=== PATIENT | male | born 1960 | race African-American/Black ===

== ENCOUNTER 2019-08-07 18:55 | Emergency (ER) | payer MEDICAID ==
[~2019-08-07] VITALS: Ht 188 cm; Wt 121.0 kg
[2019-08-07 19:02] VITALS: BP 158/95
[2019-08-07] MEDS ORDERED: BACITRACIN ZINC OINT UDPKT TOP ONE ×2 (20:00→21:00)
== END 2019-08-07 21:29 | disposition home or self-care (01) ==
LOC: ER 18:55
DX: S91.111D Laceration without foreign body of right great toe without damage to nail, subsequent encounter (principal); X58.XXXD Exposure to other specified factors, subsequent encounter; E11.9 Type 2 diabetes mellitus without complications; I10 Essential (primary) hypertension; Z88.0 Allergy status to penicillin
CPT/HCPCS: 82962; 99283

== ENCOUNTER 2021-10-14 21:25 | Emergency (ER) | payer MEDICAID, OTHER ==
[~2021-10-14] VITALS: Ht 188 cm; Wt 122.5 kg
[2021-10-14 23:56] VITALS: BP 128/88
== END 2021-10-15 01:24 | disposition home or self-care (01) ==
LOC: ER 21:25
DX: L29.9 Pruritus, unspecified (principal); L30.9 Dermatitis, unspecified; E11.9 Type 2 diabetes mellitus without complications; I10 Essential (primary) hypertension; Z88.0 Allergy status to penicillin
CPT/HCPCS: 99281

== ENCOUNTER 2022-11-08 10:18 | Emergency (ER) | payer MEDICAID, OTHER ==
[~2022-11-08] VITALS: Ht 188 cm; Wt 122.0 kg
[2022-11-08 11:27] VITALS: TEMP 98.4; O2SAT 100
[2022-11-08 13:30] VITALS: BP 119/76; PULSE 62; RESP 16
[2022-11-08] MEDS ORDERED: IBUPROFEN 600MG TABLET PO ONE (13:30)
[2022-11-08] MEDS ORDERED: ACET-2708 MT (13:31)
[2022-11-08] MEDS ORDERED: KETO15CR2 TP (13:31)
== END 2022-11-08 14:22 | disposition home or self-care (01) ==
LOC: ER 11:30
DX: L30.4 Erythema intertrigo (principal); G89.29 Other chronic pain; M54.9 Dorsalgia, unspecified
CPT/HCPCS: 82962; 99282; 99283